=== PATIENT | male | born 1960 | race African-American/Black ===

== ENCOUNTER 2016-12-29 10:54 | Inpatient (IN) | payer OTHER ==
[2016-12-16 13:23] VITALS: BMI 26.5
--- NOTE | 2016-12-29 07:55 | HP ---
Admitting History and Physical - Admission Chief Complaint: Left hip OA x years History of Present Illness: 56 year old male presents in regard to his left hip. Longstanding history of left hip osteoarthritis. Patient complains of pain, limited ROM and difficulty ambulating. Patient has failed conservative treatment including PO medication, activity modification and an exercise program. At this point, patient would like to proceed with a left total hip arthroplasty (MAKOplasty). History Source: Patient - Past Medical History Cardiovascular: Yes: HTN Gastrointestinal: Yes: GERD Psych: Yes: Depression Endocrine: Yes: Diabetes Mellitus Additional Past Medical History: See written H&P in chart - Smoking History Smoking history: Current every day smoker Have you smoked in the past 12 months: Yes Aproximately how many cigarettes per day: 3 - Alcohol/Substance Use Hx Alcohol Use: Yes (1 [facility] SOCIALLY) Home Medications - Allergies Allergies/Adverse Reactions: Allergies Allergy/AdvReac Type Severity Reaction Status Date / Time heparin Allergy Rash Verified 06/20/14 07:08 latex Allergy Rash Verified 06/20/14 07:08 - Home Medications Home Medications: Ambulatory Orders Citalopram Hydrobromide [Celexa -] 20 mg PO DAILY 06/19/14 Enalapril Maleate [Vasotec -] 10 mg PO DAILY 06/19/14 Insulin Glargine,Hum.rec.anlog [Lantus (10mL VIAL) -] 45 units SQ HS 06/19/14 Insulin Lispro [Humalog] 10 unit SQ TID 06/19/14 Ibuprofen [Motrin -] 800 mg PO Q8H PRN #30 tablet 06/20/14 Duloxetine HCl [Cymbalta] 30 mg PO DAILY 12/26/16 Lidocaine 5% Patch [Lidoderm Patch -] 1 patch TP DAILY 12/26/16 Nifedipine [Nifedipine ER] 30 mg PO DAILY 12/26/16 Omeprazole 20 mg PO DAILY 12/26/16 Review of Systems - Review of Systems Musculoskeletal: reports: Decreased ROM (Left hip), Joint Pain Physical Examination Constitutional: Yes: Well Nourished, No Distress Eyes: Yes: Conjunctiva Clear HENT: Yes: Atraumatic, Normocephalic Neck: Yes: Supple Cardiovascular: Yes: Regular Rate and Rhythm Respiratory: Yes: Regular Gastrointestinal: Yes: Soft ...Rectal Exam: Yes: Deferred Musculoskeletal: Yes: Joint Stiffness (Left hip) Assessment/Plan 56 year old male presents in regard to his left hip. Longstanding history of left hip osteoarthritis. Patient has failed conservative treatment. Proceed with a left total hip arthroplasty (MAKOplasty).
[2016-12-29] MEDS ORDERED: ROPIVICAINE 0.2%/MORPH PF/KETOROLAC - 51ML DISP.SYRINGE IA ONE ×3 (11:12→17:37)
[2016-12-29] MEDS ORDERED: GABAPENTIN 300 MG CAPSULE (FP) PO ONE (11:12)
[2016-12-29] MEDS ORDERED: CEFAZOLIN 2 GM in DEXTROSE 5%-WATER - 50 ML IVPB ONE (11:12)
[2016-12-29] MEDS ORDERED: CELECOXIB 200 MG CAPSULE PO ONE (11:12)
[2016-12-29] MEDS ORDERED: TRANEXAMIC ACID 1000 MG/10 ML VIAL IVPUSH ONE (11:12)
[2016-12-29] MEDS ORDERED: oxyCODONE HCL 10 MG SUSTAINED ACTING TABLET PO ONE (11:12)
[2016-12-29] MEDS ORDERED: ROPIVACAINE HCL 0.5% 30ML VIAL ONE (12:56)
[2016-12-29] MEDS ORDERED: MIDAZOLAM HCL 2 MG/2 ML SINGLE DOSE VIAL ONE ×2 (12:56→15:49)
[2016-12-29] MEDS ORDERED: TRANEXAMIC ACID 1000 MG/10 ML VIAL ONE ×2 (13:50→17:31)
[2016-12-29] MEDS ORDERED: VANCOMYCIN 1,000 MG VIAL (RESTRICTED TO ID ONLY) ONE (13:50)
[2016-12-29] MEDS ORDERED: ceFAZolin SODIUM 1 GM VIAL ONE (13:50)
[2016-12-29] MEDS ORDERED: PROPOFOL 20 ML ONE ×3 (13:57)
[2016-12-29] MEDS ORDERED: BUPIVACAINE HCL/PF 0.5% (5MG/ML) 10 ML VIAL ONE (13:58)
[2016-12-29] MEDS ORDERED: PROMETHAZINE HCL 25 MG/1 ML VIAL IVPUSH PRN (18:17)
[2016-12-29] MEDS ORDERED: ONDANSETRON 4 MG/2 ML VIAL IVPUSH PRN (18:17)
[2016-12-29] MEDS ORDERED: oxyCODONE HCL 5 MG TABLET PO PRN (18:21)
--- NOTE | 2016-12-29 18:23 | OP ---
Operative Note - Note: Operative Date: 12/29/16 Pre-Operative Diagnosis: left hip OA Operation: left FERNANDO Post-Operative Diagnosis: Same as Pre-op Surgeon: Capo Perez Repeat Chief: Jaelyn Lewis Anesthesia: Spinal Estimated Blood Loss (mls): 300
[2016-12-29] MEDS ORDERED: MAGNESIUM HYDROX 2400MG/30ML ORAL SUSPENSION 30 ML CUP PO PRN (18:26)
[2016-12-29] MEDS ORDERED: MAG HYDROX/AL HYDROX/SIMETH 30 ML UNIT-DOSE CUP PO PRN (18:26)
[2016-12-29] MEDS ORDERED: ONDANSETRON 4 MG/2 ML VIAL IVPB PRN (18:26)
[2016-12-29] MEDS ORDERED: LACTATED RINGERS SOLUTION 1,000 ML IV SCH (18:30)
[2016-12-29] MEDS: traMADol HCL 50 MG TABLET PO SCH ×2 (19:15→23:46)
[2016-12-29] MEDS: KETOROLAC TROMETHAMINE 30 MG/1 ML VIAL IVPUSH SCH ×2 (19:15→23:45)
[2016-12-29] MEDS: ACETAMINOPHEN 325 MG TABLET (FP) PO SCH ×2 (19:15→23:46)
[2016-12-29 19:35] LABS: ANION GAP 5 (8-16); CALCIUM 9.3 mg/dl (8.4-10.2); CO2 27 mmol/L (22-28); CREATININE 1.2 mg/dl (0.6-1.3)
[2016-12-29 19:37] LABS: GLUCOSE,RANDOM 53 mg/dl (74-106)
[2016-12-29 21:03] LABS: HIV 1 & 2 AB NEGATIVE; HIV 1 AGp24 NEGATIVE
[2016-12-29] MEDS: CEFAZOLIN 2 GM/D5W 50 ML IVPB SCH (21:54)
[2016-12-29] MEDS: INSULIN DETEMIR 100 UNITS/ML MDV SQ SCH (21:54)
[2016-12-29] MEDS: CELECOXIB 200 MG CAPSULE PO SCH (21:54)
[2016-12-29] MEDS: oxyCODONE HCL 10 MG SUSTAINED ACTING TABLET PO SCH (21:54)
[2016-12-29] MEDS: GABAPENTIN 300 MG CAPSULE (FP) PO SCH (21:54)
[2016-12-29] MEDS: SENNOSIDES/DOCUSATE COMBO (SENNA PLUS) TABLET (UD) PO SCH (21:55)
[2016-12-29] MEDS: ASCORBIC ACID 500 MG TABLET (FP) PO SCH (21:55)
[2016-12-29] MEDS ORDERED: GABAPENTIN 300 MG CAPSULE (FP) PO SCH (22:00)
[2016-12-30] MEDS: traMADol HCL 50 MG TABLET PO SCH ×3 (06:52→17:31)
[2016-12-30] MEDS: ACETAMINOPHEN 325 MG TABLET (FP) PO SCH ×3 (06:53→18:54)
[2016-12-30] MEDS: KETOROLAC TROMETHAMINE 30 MG/1 ML VIAL IVPUSH SCH ×2 (06:53→13:54)
[2016-12-30] MEDS: CEFAZOLIN 2 GM/D5W 50 ML IVPB SCH (06:56)
[2016-12-30 08:45] LABS: ANION GAP 8 (8-16); CALCIUM 9.1 mg/dl (8.4-10.2); CO2 26 mmol/L (22-28); CREATININE 1.2 mg/dl (0.6-1.3); GLUCOSE,RANDOM 95 mg/dl (74-106)
[2016-12-30 08:49] LABS: MCH 29.1 pg (25.7-33.7); MCHC 33.7 g/dl (32.0-35.9); MEAN CELL VOLUME 86.2 fl (80-96); MEAN PLT VOLUME 8.1 fl (7.5-11.1); PLATELET COUNT 138 K/MM3 (134-434); RDW 12.3 % (11.9-15.9); WHITE BLOOD COUNT 9.2 K/mm3 (4.0-10.8)
--- NOTE | 2016-12-30 09:15 | SURG ---
Surgery Staff Mine Warfare Officer Note Staff Mine Warfare Officer: Jaelyn Lewis PA-C Date of Service: 12/29/16 Diagnosis: left hip OA Procedure: left FERNANDO I was present for the entirety of the operative procedure. For further detail, please refer to operative report. Visit type - Case Type Case Type: Scheduled Admission - Emergency Emergency Visit: No - New patient This patient is new to me today: Yes Date on this admission: 12/29/16 - Critical Care Critical Care patient: No
[2016-12-30] MEDS: LACTATED RINGERS SOLUTION 1,000 ML IV SCH ×2 (09:16→17:31)
[2016-12-30] MEDS: ENALAPRIL MALEATE 10 MG TABLET (FP) PO SCH (09:17)
[2016-12-30] MEDS: oxyCODONE HCL 10 MG SUSTAINED ACTING TABLET PO SCH ×2 (09:17→21:21)
[2016-12-30] MEDS: CELECOXIB 200 MG CAPSULE PO SCH ×2 (09:18→21:21)
[2016-12-30] MEDS: ASPIRIN 325 MG TABLET PO SCH (09:18)
[2016-12-30] MEDS: PANTOPRAZOLE 40 MG TABLET (FP) PO SCH (09:18)
[2016-12-30] MEDS: SENNOSIDES/DOCUSATE COMBO (SENNA PLUS) TABLET (UD) PO SCH ×2 (09:19→21:22)
[2016-12-30] MEDS: MULTIVITAMINS (DAILY MVI) TABLET (FP) PO SCH (09:20)
[2016-12-30] MEDS: ASCORBIC ACID 500 MG TABLET (FP) PO SCH ×2 (09:20→21:22)
[2016-12-30] MEDS: NIFEdipine E.R. 30 MG TABLET (FP) PO SCH (09:20)
[2016-12-30] MEDS: DULoxetine HCL 30 MG CAPSULE.DR (FP) PO SCH (09:20)
[2016-12-30] MEDS: CITALOPRAM HYDROBROMIDE 20 MG TABLET (FP) PO SCH (09:24)
[2016-12-30] MEDS: GABAPENTIN 300 MG CAPSULE (FP) PO SCH ×2 (09:25→21:21)
[2016-12-30] MEDS: INSULIN (NOVOLOG) ASPART 100 UNITS/ML 10ML VIAL SQ SCH ×2 (13:52→17:31)
--- NOTE | 2016-12-30 14:57 | PN ---
Progress Note (short form) - Note Progress Note: Patient doing well POD#1 s/p FERNANDO. Pain 2/10. Patient ambulating and participating in physical therapy. Continue current care.
--- NOTE | 2016-12-30 15:17 | DS ---
Physical Examination Vital Signs: Vital Signs Temperature 98.2 F 12/30/16 13:45 Pulse Rate 79 12/30/16 13:45 Respiratory Rate 18 12/30/16 13:45 Blood Pressure 97/50 12/30/16 13:45 O2 Sat by Pulse Oximetry (%) 100 12/30/16 09:00 Labs: CBC, BMP 12/30/16 08:00 12/30/16 08:00 Discharge Summary Reason For Visit: LEFT HIP OSTEOARTHRITIS Procedures: Principal: left total hip replacement Hospital Course: Admitted for elective surgery. Procedure performed without complications. Pt received postoperative antibiotic prophylaxis and DVT ppx. Ambulated with physical therapy. Stable for discharge home with outpatient followup. Condition: Stable - Instructions Diet, Activity, Other Instructions: Dr Perez - Hip Replacement Instructions Keep the Aquacel dressing on until removed by Dr. Perez in 10-14 days - it is antibacterial and waterproof and you can shower with it on. Call the office for a follow-up appointment with Dr. Perez in 10-14 days. ~ Take one Aspirin 325mg daily for 6 weeks to prevent blood clots in your legs. Take one Pantoprazole 40mg daily for 6 weeks to protect against heartburn and ulcers. Take Celebrex 200mg twice daily for 30 days to reduce swelling and inflammation. For pain: *Mild pain (1-3/10): Take 1 Tramadol tablet every 4 hours as needed. Moderate pain (4-6/10): Take 1 Tramadol tablet and 1 Percocet tablet every 4 hours as needed. Severe pain (7-10/10): Take 1 Tramadol tablet and 2 Percocet tablets every 4 hours as needed. Activity: ~You can put as much weight on the operative leg as you want.~ For the first 6 weeks, all you need to do is walk around the house, go up/down stairs, and sit down/get up.~ After 6 weeks when everything is healed (and bone has grown into the implant) you will be sent for more intensive outpatient physical therapy. Always use a walker or cane for balance and to prevent falls. Disposition: VNS/HOME HEALTH CARE - Home Medications Comprehensive Discharge Medication List: Ambulatory Orders Citalopram Hydrobromide [Celexa -] 20 mg PO DAILY 06/19/14 Enalapril Maleate [Vasotec -] 10 mg PO DAILY 06/19/14 Insulin Glargine,Hum.rec.anlog [Lantus (10mL VIAL) -] 45 units SQ HS 06/19/14 Insulin Lispro [Humalog] 10 unit SQ TID 06/19/14 Ibuprofen [Motrin -] 800 mg PO Q8H PRN #30 tablet 06/20/14 Duloxetine HCl [Cymbalta] 30 mg PO DAILY 12/26/16 Lidocaine 5% Patch [Lidoderm Patch -] 1 patch TP DAILY 12/26/16 Nifedipine [Nifedipine ER] 30 mg PO DAILY 12/26/16 Omeprazole 20 mg PO DAILY 12/26/16
[2016-12-30] MEDS: INSULIN DETEMIR 100 UNITS/ML MDV SQ SCH (21:31)
--- NOTE | 2016-12-30 22:17 | PN ---
Progress Note (short form) - Note Progress Note: Pt seen and examined. Comfortable. No complaints. AVSS Selected Entries 12/30/16 12/30/16 14:00 20:16 Temperature 98.2 F Pulse Rate 79 Respiratory 18 Rate Blood Pressure 97/50 O2 Sat by Pulse 100 Oximetry (%) Oxygen Delivery Room Air Method Laboratory Tests 12/30/16 12/30/16 08:00 08:00 WBC 9.2 Hgb 12.3 Hct 36.6 Plt Count 138 Sodium 138 Potassium 4.4 Chloride 104 Carbon Dioxide 26 Anion Gap 8 BUN 25 H Creatinine 1.2 Gen: NAD LLE: c/d/i, NVID A/P 56yo male POD#1 s/p L FERNANDO 1. PT/OOB - WBAT LLE 2. D/C home tomorrow afternoon
[2016-12-30 22:45] VITALS: BP 130/71; PULSE 84; TEMP 99.4
[2016-12-31] MEDS: traMADol HCL 50 MG TABLET PO SCH ×2 (01:30→06:02)
[2016-12-31] MEDS: oxyCODONE HCL 5 MG TABLET PO PRN ×2 (01:30→09:16)
[2016-12-31] MEDS: ACETAMINOPHEN 325 MG TABLET (FP) PO SCH ×2 (01:30→06:03)
[2016-12-31] MEDS: INSULIN (NOVOLOG) ASPART 100 UNITS/ML 10ML VIAL SQ SCH (06:35)
[2016-12-31] MEDS: ASPIRIN 325 MG TABLET PO SCH (08:00)
[2016-12-31 08:02] LABS: MCH 28.7 pg (25.7-33.7); MCHC 34.3 g/dl (32.0-35.9); MEAN CELL VOLUME 83.8 fl (80-96); MEAN PLT VOLUME 8.1 fl (7.5-11.1); PLATELET COUNT 128 K/MM3 (134-434); RDW 11.9 % (11.9-15.9)
[2016-12-31] MEDS: oxyCODONE HCL 10 MG SUSTAINED ACTING TABLET PO SCH (10:12)
[2016-12-31] MEDS: CELECOXIB 200 MG CAPSULE PO SCH (10:13)
[2016-12-31] MEDS: DULoxetine HCL 30 MG CAPSULE.DR (FP) PO SCH (10:14)
[2016-12-31] MEDS: CITALOPRAM HYDROBROMIDE 20 MG TABLET (FP) PO SCH (10:14)
[2016-12-31] MEDS: GABAPENTIN 300 MG CAPSULE (FP) PO SCH (10:14)
[2016-12-31] MEDS: SENNOSIDES/DOCUSATE COMBO (SENNA PLUS) TABLET (UD) PO SCH (10:15)
[2016-12-31] MEDS: NIFEdipine E.R. 30 MG TABLET (FP) PO SCH (10:15)
[2016-12-31] MEDS: PANTOPRAZOLE 40 MG TABLET (FP) PO SCH (10:15)
[2016-12-31] MEDS: MULTIVITAMINS (DAILY MVI) TABLET (FP) PO SCH (10:15)
[2016-12-31] MEDS: ENALAPRIL MALEATE 10 MG TABLET (FP) PO SCH (10:15)
[2016-12-31] MEDS: ASCORBIC ACID 500 MG TABLET (FP) PO SCH (10:15)
--- NOTE | 2017-01-03 16:18 | PATH ---
Surgical Pathology Report Patient Name: KAR SILVESTRE Med. Rec. #: [id number] /Age/Gender: 1960 (Age: 56) / M Account: [id number] Location: [facility] Taken: 12/29/2016 Received: 12/29/2016 Reported: 01/03/2017 Physicians: Capo Perez M.D. Specimen(s) Received LEFT FEMORAL HEAD Clinical History Left hip osteoarthritis Final Diagnosis FEMORAL HEAD, LEFT, TOTAL HIP REPLACEMENT: DEGENERATIVE JOINT DISEASE. Electronically Signed Linh Talamantes M.D. Gross Description Received in formalin, labeled "left femoral head," is a 4.7 x 4.7 x 4.5 cm. femoral head with a 1.2 cm in length portion of femoral neck attached. The margin of resection is smooth. There is a 4.7 cm in greatest dimension area of eburnation present. The remaining articular surface is monroe-yellow and diffusely nodular and granular. The underlying trabecular bone is yellow and hard. A associate financial representative section is submitted in one cassette, following decalcification. 12/30/2016 [facility]
--- NOTE | 2017-01-26 17:13 | SPEC ---
DATE OF OPERATION: 12/29/2016 PREOPERATIVE DIAGNOSIS: Left hip osteoarthritis. POSTOPERATIVE DIAGNOSIS: Left hip osteoarthritis. PROCEDURE: Left total hip replacement with MAKOplasty robotic navigation. ATTENDING: Angeles Sevilla MD BENCH ASSEMBLER OPERATOR: EVERT Marquez ANESTHESIA: Spinal plus sedation. ESTIMATED BLOOD LOSS: 300 mL. COMPLICATIONS: None. SPECIMENS: Resected bone was sent for pathology analysis. DISPOSITION: The patient was transferred to the PACU in stable condition. IMPLANTS USED: Dejah Accolade II size 7 femoral component, Tritanium 56-mm acetabular component, MDM bipolar head ball with inner ceramic +4 offset head. INDICATIONS: This is a 56-year-old male who presented to the office with severe bilateral hip pain. He was seen and examined by Dr. Sevilla and diagnosed with severe bilateral hip osteoarthritis. The patient had failed nonoperative management and was indicated for total hip replacements. The left one was more painful so elected to proceed with this one 1st. Risks, benefits and alternatives to the procedure were explained to the patient in great detail and he elected to proceed with the surgery. On the day of surgery, the patient was taken to the operating room and placed on the OR table. Spinal anesthesia was administered by the anesthesiologist. The patient was then positioned in the lateral decubitus position on the table and all bony prominences were padded. An axillary roll was placed. The operative hip was then prepped and draped in the usual sterile fashion and intravenous antibiotics were given for infection prophylaxis. A surgical time-out was then performed with the team, and the patients identity, procedure, side, availability of implants, and the administration of antibiotics was confirmed. An approximately 15cm longitudinal incision was made through the skin centered on the greater trochanter of the hip. This dissection was carried down through the subcutaneous tissues to the deep fascia. This fascia was then incised and a cobra was placed around the inferior femoral neck. Electrocautery was used to reflect the anterior 40% of the gluteus medius and minimus starting at the musculotendinous junction and leaving a cuff for closure. This was reflected to reveal the capsule of the hip joint. An anterior capsulectomy was performed and the femoral head and neck was visualized. Grade 4 changes were noted diffusely throughout the joint. At this point, three small stab incisions were made superior to the main incision along the iliac crest. Three self-drilling Tonya pins were then placed and the Bernardo pelvic array was attached. Reference points on the limb were then entered into the robotic device and the limb length deficiency, offset, and femoral neck resection level were then calculated by the software. The hip was then dislocated with traction and external rotation, an oscillating saw was used to make the femoral neck cut at the level previously templated, and the femoral head was removed. Attention was then turned to the acetabulum. Retractors were then placed around the acetabulum and the labrum was removed. An acetabular checkpoint pin and the AlphaLab software was used to register the contours of the acetabulum. The acetabulum was then reamed in a single stage to the preoperatively templated size using the AlphaLab robotic arm. The appropriately sized cup was then impacted and had solid fixation as well as the preset inclination and version of 40 and 20 degrees, respectively. A polyethylene liner was then placed in the cup. Attention was then turned back to the femur, which was externally rotated for improved visualization. A femoral neck elevator was used to present the femoral neck cut, a box osteotome was used to enter the femoral canal, and a canal finder was used to go down the femoral shaft. The Bernardo broaches were used sequentially until the optimal scratch fit was achieved. This correlated to the preoperatively templated size. From here, several different offset head and neck configurations were tested until excellent stability and length was obtained. These measurements were quantified using the AlphaLab software. All trial components were then removed, the femur was copiously irrigated, and the final components were placed. Leg length and stability were checked again and found to be excellent. Irrigation was performed again. Wound closure was started by repairing the abductor muscles with a No. 2 Fiberwire stitch in a Crawford configuration passed through bone tunnels in the greater trochanter and tied over a bony bridge. This repair was then reinforced with a 0 VLoc 180 barbed suture. Next, No. 1 Polysorb and 0 VLoc 180 was used to close the fascia. The deep subcutaneous tissue was closed with No. 1 Polysorb sutures, and 2-0 Polysorb was used for the superficial subcutaneous tissue. The skin was closed using both 3-0 VLoc 90 suture in a running subcuticular fashion and SwiftSet skin adhesive. The Bernardo array and pins were removed from the iliac crest and the stab incision sites were irrigated and closed with 4-0 Polysorb sutures and SwiftSet skin adhesive. Once this was completed a sterile dressing was applied. The patient was then awakened and taken to the PACU in stable condition. ANGELES SEVILLA M.D. [id number]
== END 2016-12-31 12:20 | disposition home health service (06) | DRG 470 ==
LOC: FM/S 10:54
PROVIDERS: ADMIT Student in an Organized Health Care Education/Training Program; ATTEND Student in an Organized Health Care Education/Training Program
PROC: 8E0Y0CZ Robotic Assisted Procedure of Lower Extremity, Open Approach (ICD-10-PCS; 2016-12-29)
PROC: 0SRB0JZ Replacement of Left Hip Joint with Synthetic Substitute, Open Approach (ICD-10-PCS; principal; 2016-12-29 15:19)
DX: M16.12 Unilateral primary osteoarthritis, left hip (principal); E11.9 Type 2 diabetes mellitus without complications; Z79.4 Long term (current) use of insulin; K21.9 Gastro-esophageal reflux disease without esophagitis; I10 Essential (primary) hypertension; F17.210 Nicotine dependence, cigarettes, uncomplicated
CPT/HCPCS: 36415; 73502-TC-LT; 80048; 85027; 87389; 88304-TC; 88311-TC; 94010; 94760; 97116-GP; 97162-GP

== ENCOUNTER 2019-09-20 08:16 | Day surgery (SDC) | payer OTHER ==
[2019-09-19 12:39] VITALS: BMI 30.3
[~2019-09-20 08:16] MED LIST: LACTATED RINGERS SOLUTION 1,000 ML IV SCH; oxyCODONE HCL 5 MG TABLET PO PRN
[2019-09-20] MEDS ORDERED: MIDAZOLAM HCL 2 MG/2 ML SINGLE DOSE VIAL ONE (09:00)
[2019-09-20] MEDS ORDERED: BUPIVACAINE HCL/PF 0.5% (5 MG/ML) 30 ML VIAL IJ ONE (09:00)
[2019-09-20] MEDS ORDERED: ceFAZolin SODIUM 1 GM VIAL ONE (09:11)
[2019-09-20] MEDS ORDERED: KETOROLAC TROMETHAMINE 30 MG/1 ML VIAL ONE ×2 (09:12)
[2019-09-20] MEDS ORDERED: DEXAMETHASONE SOD PHOSPHATE 4 MG/1 ML VIAL ONE (09:12)
[2019-09-20] MEDS ORDERED: ONDANSETRON 4 MG/2 ML VIAL ONE (09:12)
[2019-09-20] MEDS ORDERED: PROPOFOL 20 ML ONE ×2 (09:17)
[2019-09-20] MEDS ORDERED: LABETALOL HCL 5 MG/1 ML (100MG/20 ML VIAL) ONE (11:29)
[2019-09-20 13:43] VITALS: TEMP 98
[2019-09-20 15:37] VITALS: BP 138/78; PULSE 62
--- NOTE | 2019-09-20 16:26 | OP ---
DATE OF OPERATION: 09/20/2019 Done at [facility] SURGEON: Claudio Hobson MD LAWN CARE WORKER: EVERT Persaud PREOPERATIVE DIAGNOSES: 1. Right knee quadriceps tendon rupture. 2. Right knee medial and lateral meniscal tear. 3. Right knee cartilage injury. 4. Right knee synovitis. POSTOPERATIVE DIAGNOSES: 1. Right knee quadriceps tendon rupture. 2. Right knee medial and lateral meniscal tear. 3. Right knee cartilage injury. 4. Right knee synovitis. PROCEDURE: 1. Right knee quadriceps tendon repair. 2. Right knee arthroscopy with partial meniscectomy medial and lateral meniscus. 3. Right knee arthroscopy with chondroplasty and abrasion-plasty. 4. Right knee arthroscopy with synovectomy. FINDINGS: 1. Medial meniscus posterior horn tear and anterior horn tear. 2. Lateral meniscus posterior horn tear. 3. Synovitis patellofemoral medial and lateral notch area. 4. Minor grade 1-2 changes anterior medial femoral condyle tibial plateau. 5. Diffuse grade 1 changes lateral joint line. 6. ACL and PCL intact. 7. Superior grade 4 changes superior pole of medial facet of patella with minor grade 1-2 changes medial femoral trochlea. 8. Avulsed quadriceps tendon distal portion. PROCEDURE: Informed consent was obtained. The patient came to the operating room, where the lower extremity was prepped and draped in a sterile fashion. A tourniquet was placed on the upper thigh, but not inflated. Using standard arthroscopic technique, a lateral incision and portal was made to allow for introduction of the camera into the suprapatellar bursa. This was then taken to the medial joint line, where under direct visualization, a medial incision and portal was made. Excessive synovium noted in the medial, lateral and patellofemoral and notch area was removed by an upbiter, shaver and Bovie cautery. This was found to bring in inflammatory tissue into the joint surface, a source of pain and dysfunction. Probing of the medial and lateral meniscus found tears, as described in the findings. These were removed with the upbiter and shaver and taken back to a stable rim. Grade 2 to 3 degenerative changes were treated with a chondroplasty, removing all flaking surfaces with low-setting Bovie along the periphery to prevent further flaking. Grade 4 changes, as noted, were treated with an abrasoplasty, creating a bleeding surface at the bone/cartilage interface. Aggressive debridement with shaver/eriberto created bleeding surface. Micro fracture also done when indicated in findings. Incision was then made approximately 6 cm from the superior pole of the patella to 4 cm from the distal pole distally. Tendon was identified after peritenon. Necrotic tissue from the tendon was debrided, and the tissue from the superior pole of the patella was debrided as well. A bur was then used on the superior portion of the patella creating a bleeding surface. A No. 5 Ethibond was used in an interlocking [place] stitch along the quadriceps tendon. The 4 strands were then brought out distally. Three holes were placed through the patella exiting through the distal 1/3 bringing the medial strand of suture through the medial hole with 2 central strands placed through the central one and the lateral strand through the lateral. These were then overtied over bone tunnels securing the distal quadriceps tendon to a bleeding bone bed. The quadriceps tendon repair was then oversewn with No. 2 FiberWire with [id number] interrupted sutures. The wound was irrigated again. Layered closure with 0 Vicryl, 2-0 Vicryl, and kandy were placed. Sterile dressing was placed. Patient was transferred to recovery without complication. The PA listed above was present and assisted at surgery. Their presence was absolutely medically necessary for the completion of the procedure. They helped hold the arthroscopy, pass instruments (and implants when indicated) and the procedure could not have been completed without their assistance. CLAUDIO HOBSON M.D. [id number]
--- NOTE | 2019-09-24 15:03 | PATH ---
Surgical Pathology Report Patient Name: KAR SILVESTRE Med. Rec. #: [id number] /Age/Gender: 1960 (Age: 59) / M Account: [id number] [facility] Taken: 09/20/2019 Received: 09/20/2019 Reported: 09/24/2019 Physicians: Claudio Escobedo M.D. Specimen(s) Received A: SHAVINGS RIGHT KNEE B: PORTION OF RIGHT QUAD TENDON Clinical History Right quadriceps tendon rupture Final Diagnosis A. KNEE, RIGHT, ARTHROSCOPIC SHAVING: FIBROCARTILAGE WITH MYXOID DEGENERATIVE CHANGES, ALONG WITH PORTIONS OF SYNOVIUM AND HYALINE CARTILAGE. B. SOFT TISSUE, RIGHT QUADRICEPS TENDON, PARTIAL EXCISION: DENSE ORGANIZED FIBROUS CONNECTIVE TISSUE CONSISTENT WITH PORTION OF TENDON, WITH AREA OF HEMORRHAGE AND GRANULATION TISSUE CONSISTENT WITH RESPONSE TO RUPTURE. Electronically Signed Rolando Valle M.D. Gross Description A. Received in formalin, labeled "shavings right knee," is a 4.8 x 4.7 x 0.4 cm. aggregate of monroe-yellow soft tissue fragments. A registered representative portion is submitted in one cassette. B. Received in formalin labeled "portion of right quadriceps tendon," are 2 monroe portions of focally hemorrhagic fibrous tissue measuring 3.0 x 1.9 x 0.6 cm and 5.0 x 3.3 x 1.0 cm, consistent with portions of tendon. Retail Banker sections are submitted in one cassette. DL/09/23/2019 saudi09/23/2019
== END 2019-09-20 14:30 | disposition home or self-care (01) ==
LOC: FASU 08:16
PROVIDERS: ATTEND Orthopaedic Surgery
PROC: 0SBC4ZZ Excision of Right Knee Joint, Percutaneous Endoscopic Approach (ICD-10-PCS; 2019-09-20)
PROC: 0SBC4ZZ Excision of Right Knee Joint, Percutaneous Endoscopic Approach (ICD-10-PCS; 2019-09-20)
PROC: 0LQL0ZZ Repair Right Upper Leg Tendon, Open Approach (ICD-10-PCS; principal; 2019-09-20 10:51)
PROC: 0SBC4ZZ Excision of Right Knee Joint, Percutaneous Endoscopic Approach (ICD-10-PCS; 2019-09-20 10:51)
DX: S76.111A Strain of right quadriceps muscle, fascia and tendon, initial encounter (principal); S83.241A Other tear of medial meniscus, current injury, right knee, initial encounter; S83.281A Other tear of lateral meniscus, current injury, right knee, initial encounter; S83.8X1A Sprain of other specified parts of right knee, initial encounter; M65.861 Other synovitis and tenosynovitis, right lower leg; X58.XXXA Exposure to other specified factors, initial encounter; Y93.9 Activity, unspecified; Y92.9 Unspecified place or not applicable
CPT/HCPCS: 82962; 88304-TC; 94760